=== PATIENT | female | born 1945 | race Caucasian/White ===

== ENCOUNTER 2016-10-31 12:38 | Day surgery (SDC) | payer MEDICARE ==
[~2016-10-31] VITALS: Ht 180.3 cm; Wt 72.8 kg
[~2016-10-31 12:38] MED LIST: TYLENOL 325MG325 MG PO; TYLENOL 8 HR PO
[2016-10-31 13:00] VITALS: BP 122/73; PULSE 58; TEMP 98.6
[2016-10-31] MEDS ORDERED: MULTI VITAMINS1 TAB PO (13:30)
[2016-10-31] MEDS ORDERED: ANTIOXIDANT PO (13:31)
[2016-10-31 14:42] VITALS: BP 125/77; PULSE 61
[2016-10-31 14:57] VITALS: BP 126/62; PULSE 52
[2016-10-31 15:12] VITALS: BP 136/71; PULSE 57
[2016-10-31 16:06] VITALS: BP 118/68; PULSE 60
== END 2016-10-31 15:30 | disposition home or self-care (01) ==
LOC: SDCO 12:38
DX: Z12.11 Encounter for screening for malignant neoplasm of colon (principal); K64.4 Residual hemorrhoidal skin tags; E78.00 Pure hypercholesterolemia, unspecified; Z85.3 Personal history of malignant neoplasm of breast; Z92.21 Personal history of antineoplastic chemotherapy; Z90.11 Acquired absence of right breast and nipple
CPT/HCPCS: OP; J2250; J2405; J3010; J7030

== ENCOUNTER → 2017-02-01 | Outpatient (CLI) | payer MEDICARE ==
[~2017-02-01] MED LIST changes: +ANTIOXIDANT PO; +MULTI VITAMINS1 TAB PO
== END ==
LOC: MC.RAD 08:40
DX: Z12.31 Encounter for screening mammogram for malignant neoplasm of breast (principal); Z90.11 Acquired absence of right breast and nipple

== ENCOUNTER → 2018-02-27 | Outpatient (CLI) | payer MEDICARE | LOC: MC.RAD 11:18 | DX: Z12.31 Encounter for screening mammogram for malignant neoplasm of breast (principal); C50.911 Malignant neoplasm of unspecified site of right female breast ==

== ENCOUNTER → 2019-03-10 | Outpatient (CLI) | payer MEDICARE | LOC: MC.RAD 03-03 09:45 | DX: Z12.31 Encounter for screening mammogram for malignant neoplasm of breast (principal); C50.911 Malignant neoplasm of unspecified site of right female breast ==

== ENCOUNTER → 2020-01-20 | Outpatient (CLI) | payer MEDICARE | LOC: ZCOL.LAB 16:24 | DX: U07.1 COVID-19 (principal) ==

== ENCOUNTER → 2020-04-06 | Outpatient (CLI) | payer MEDICARE | LOC: MC.RAD 10:42 | DX: Z12.31 Encounter for screening mammogram for malignant neoplasm of breast (principal) ==

== ENCOUNTER → 2021-07-06 | Outpatient (CLI) | payer MEDICARE | LOC: MC.RAD 08:15 | DX: Z12.31 Encounter for screening mammogram for malignant neoplasm of breast (principal) ==

== ENCOUNTER → 2023-11-09 | Outpatient (CLI) | payer OTHER | LOC: MC.RAD 10:06 | DX: Z12.31 Encounter for screening mammogram for malignant neoplasm of breast (principal) ==